=== PATIENT | female | born 1945 | race Caucasian/White ===

== ENCOUNTER → 2019-04-21 | Outpatient (CLI) | payer BC, MEDICARE ==
--- NOTE | 2019-04-21 19:02 | RADIOLOGY REPORT (SQ) ---
EXAM DESCRIPTION: KUB/ABDOMEN (SINGLE VIEW) COMPLETED DATE/TIME: 04/21/2019 6:51 pm REASON FOR STUDY: MRI SCREENING EVAL FOR FOREIGN BODY M54.5 LOW BACK PAIN COMPARISON: None. NUMBER OF VIEWS: One view. TECHNIQUE: Supine radiographic image of the abdomen acquired. LIMITATIONS: None. FINDINGS: BOWEL GAS PATTERN: Normal bowel gas pattern. No dilated loops. CALCIFICATIONS: No suspicious calcifications. SOFT TISSUES: No gross mass or suggestion of organomegaly. HARDWARE: Patient has an endoscopically placed clip over the right rectosigmoid region. Patient give s a history of a endoscopic polypectomy/clip placement recently. These endoscopically placed clips a re not MRI compatible. Recommend intermittent serial KUBs until the clip passes before further attem pts at MRI. BONES: No acute fracture. No worrisome bone lesions. OTHER: No other significant finding. IMPRESSION: Patient has an endoscopically placed clip over the right rectosigmoid region. Patient g carmelo a history of a endoscopic polypectomy/clip placement recently. These endoscopically placed clips are not MRI compatible. Recommend intermittent serial KUBs until the clip passes before further att empts at MRI. TECHNICAL DOCUMENTATION: JOB ID: [id number] [employer]- All Rights Reserved Reading location - IP/workstation name: [email or web address]
== END ==
LOC: RAD 19:01
PROVIDERS: ATTEND Physician Assistant
DX: Z13.89 Encounter for screening for other disorder (principal)
CPT/HCPCS: 74018

== ENCOUNTER → 2019-05-01 | Outpatient (CLI) | payer MEDICARE ==
--- NOTE | 2019-05-01 15:00 | RADIOLOGY REPORT (SQ) ---
EXAM DESCRIPTION: CT LUMBAR SPINE WITHOUT COMPLETED DATE/TIME: 05/01/2019 2:19 pm REASON FOR STUDY: M54.5 LOW BACK PAIN M54.5 LOW BACK PAIN COMPARISON: None. TECHNIQUE: Axial images acquired through the lumbar spine without intravenous contrast. Images revi ewed with lung, soft tissue and bone windows. Reconstructed coronal and sagittal MPR images reviewed . All images stored on PACS. All CT scanners at this facility use dose modulation, iterative reconstruction, and/or weight based d osing when appropriate to reduce radiation dose to as low as reasonably achievable (ALARA). [facility]: Dose Right [facility]: CareDose [facility]: Dose Right [facility]: Teradose 4D [facility]: ActiveTrak RADIATION DOSE: CT Rad equipment meets quality standard of care and radiation dose reduction techniq ues were employed. CTDIvol: 14.3 mGy. DLP: 568 mGy-cm. mGy. LIMITATIONS: None. FINDINGS: SEGMENTATION: Normal. No transitional anatomy. ALIGNMENT: Levoconvex lumbar curvature with straightening of the normal lumbar lordosis. Grade 1 ant erolisthesis of L4 on L5. VERTEBRAL BODIES: No fracture. Chronic Modic endplate changes within the lower thoracic vertebral prabhu dies and at L1-2 and L2-3. DISCS: Multilevel degenerative disc disease with disc height loss throughout the lumbar spine greates t at L1-2 and L2-3. Vacuum phenomenon at L2-3 and L4-5. Multilevel posterior disc bulges greatest a t L2-3 with resultant moderate canal stenosis and moderate to severe right neural foraminal narrowing at L1-2 and L2-3. Additional moderate posterior disc bulge at L4-5 with at least moderate canal anita nosis, evaluation limited without intrathecal contrast. There is resultant moderate neural foraminal narrowing on the left at that level. PEDICLES, TRANSVERSE PROCESSES: No fractures. No dislocation. No acute findings. FACETS, POSTERIOR ELEMENTS: Lower lumbar facet arthropathy greatest at L4-5 and L5-S1. HARDWARE: None in the spine. VISUALIZED RIBS: No fractures. SOFT TISSUES: Scattered colonic diverticula. Aortoiliac atherosclerosis. No evidence of acute proce ss on the limited evaluation. OTHER: No other significant finding. IMPRESSION: 1. No evidence of acute bony abnormality of the lumbar spine. 2. Multilevel degenerative disc disease greatest at L1-2 and L2-3. Multilevel posterior disc bulges with at least moderate canal stenosis at L2-3 and L4-5 although evaluation limited without intrathec al contrast. 3. Multilevel neural foraminal narrowing from disc disease and facet arthropathy greatest at L1-3 an d L4-5 as above. TECHNICAL DOCUMENTATION: JOB ID: [id number] Quality ID # 436: Final reports with documentation of one or more dose reduction techniques (e.g., Au tomated exposure control, adjustment of the mA and/or kV according to patient size, use of iterative reconstruction technique) 2010 [employer]- All Rights Reserved Reading location - IP/workstation name: [email or web address]
== END ==
LOC: RAD 14:05
PROVIDERS: ATTEND Physician Assistant
DX: M51.36 Other intervertebral disc degeneration, lumbar region (principal); M48.061 Spinal stenosis, lumbar region without neurogenic claudication; M54.5 Low back pain
CPT/HCPCS: 72131

== ENCOUNTER 2019-06-22 07:53 | Day surgery (SDC) | payer MEDICARE ==
[2019-06-22 10:50] LABS: INTERNATIONAL RATION (INR) 0.96; PARTIAL THROMBOPLASTIN TIME 27.8 SEC (23.5-35.8); PROTHROMBIN TIME 12.8 SEC (11.4-15.4)
[2019-06-22 14:20] VITALS: BP 108/54
--- NOTE | 2019-06-22 16:15 | RADIOLOGY REPORT (SQ) ---
EXAM DESCRIPTION: MYELOGRAM LUMBAR; CT LUMBAR SPINE WITH COMPLETED DATE/TIME: 06/22/2019 12:02 pm; 06/22/2019 11:54 am REASON FOR STUDY: SPINAL STENOSIS, LUMBAR REGION WITHOUT NEUROGENIC CLAUDICATION/ RADILOPATHY M48.06 1 M54.16 RADICULOPATHY, LUMBAR REGION Z79.01 PENITENTIARY (CURRENT) USE OF ANTICOAGULANTS COMPARISON: CT lumbar spine 05/01/2019 FLUOROSCOPY TIME: 1.5 minutes 17 images saved to PACS. TECHNIQUE: Fluoroscopic guided lumbar myelogram. Post lumbar myelogram CT with sagittal coronal reconstructions. LIMITATIONS: None. PROCEDURE: After written consent and assessment were obtained, the patient was brought into the fluo roscopy room and placed prone on the table. The patient's lower back was prepped in a sterile fashio n and an entry site was selected under live fluoroscopic guidance. The entry site was anesthetized wi th 1% lidocaine. The spinal needle was advanced through the skin and into the thecal sac at the left paracentral L1-2 level. Contrast was injected into the thecal sac. Following the procedure the need le was removed and a sterile bandage was placed of the site. CONTRAST: 14 mL Omnipaque 180. IMAGES ACQUIRED: Prone oblique, semi-erect and upright oblique, PA, and lateral images of the lumbar spine. Lumbar flexion extension images. TECHNIQUE: After performing lumbar myelogram, axial images were acquired through the lumbar spine wi thout intravenous contrast. Images reviewed with lung, soft tissue and bone windows. Reconstructed coronal and sagittal MPR images reviewed. All images stored on PACS. All CT scanners at this facility use dose modulation, iterative reconstruction, and/or weight based d osing when appropriate to reduce radiation dose to as low as reasonably achievable (ALARA). [facility]: Dose Right [facility]: CareDose [facility]: Dose Right [facility]: Teradose 4D [facility]: LEAFER FINDINGS: At myelography, there is significant central canal stenosis at L2-3, with effacement of th e CSF around the lumbar nerve roots, and high-grade central canal stenosis. This persists between pr one and upright views, unchanged between flexion and extension images. During injection, a partial m yelographic block at L2-3 was present. At myelography, moderate central canal stenosis at L4-5 is present with partial effacement of the CSF around the lumbar nerve roots. Postmyelogram CT: SEGMENTATION: Normal. No transitional anatomy. ALIGNMENT: Grade 1 anterolisthesis of L4 over L5. There is diffuse convex leftward lumbar curvature VERTEBRAL BODIES: No fractures. No dislocation. No acute findings. HARDWARE: None in the spine. DISCS: T10-11, T11-12, T12-L1: No central canal or foraminal stenosis. Conus at the T12-L1 level. L1-L2: There is L1-2 disc space loss of height and vertebral body endplate sclerosis. Mild diffuse p osterior disc bulging, mild facet and ligament hypertrophy is present. There is high-grade right for aminal narrowing with effacement of fat around the exiting right L1 nerve root on sagittal image 35 a nd axial image 43/125. Mild left foraminal narrowing is present without exiting left L1 nerve root i mpingement. L2-L3: High-grade central canal stenosis present at the L2-3 level on both upright flexion/ extension images and supine CT scanning. This results from broad diffuse posterior disc bulge and bony spurri ng right greater than left, and bilateral facet arthropathy. There is severe right foraminal narrowi ng with effacement of the fat around the exiting right L2 nerve root. Mild left foraminal narrowing without exit left L2 nerve root impingement. No instability on the upright flexion and extension pos tmyelogram images. L3-L4: Minimal posterior disc bulging, mild facet hypertrophy is present. No central canal narrowing . There is mild bilateral foraminal narrowing without exiting L3 nerve root impingement. L4-L5: Grade 1 anterolisthesis of L4 over L5, bulky bilateral facet and ligament hypertrophy is prese nt. Moderate central canal stenosis results from broad diffuse disc bulge and facet/ ligament hypert rophy. Partial effacement of the CSF around the lumbar nerve roots. Findings are stable between upr ight flexion/ extension images and supine CT images. Elsewhere at L4-5, there is moderate bilateral foraminal narrowing left greater than right. L5-S1: Minimal diffuse posterior disc bulging, moderate bilateral facet hypertrophy right greater andre n left. No central stenosis. Mild right and moderate left foraminal stenosis. VISUALIZED RIBS: No fractures. SOFT TISSUES: Sigmoid colon diverticuli. No retroperitoneal adenopathy or abdominal aortic aneurysm. OTHER: No other significant finding. IMPRESSION: High-grade central canal stenosis at L2-3 High-grade right foraminal narrowing L1-2 Moderate central canal stenosis at L4-5 COMMENT: Patient medication list reviewed: Yes- Quality ID# [id number]:Eligible professional attests to doc umenting in the medical record they obtained, updated, or reviewed the patient's current medications. TECHNICAL DOCUMENTATION: JOB ID: [id number] Quality ID # 436: Final reports with documentation of one or more dose reduction techniques (e.g., Au tomated exposure control, adjustment of the mA and/or kV according to patient size, use of iterative reconstruction technique) 2010 [employer]- All Rights Reserved Reading location - IP/workstation name: [email or web address]
== END 2019-06-22 14:15 | disposition home or self-care (01) ==
LOC: RAD 07:53
PROVIDERS: ATTEND Physician Assistant
DX: M48.061 Spinal stenosis, lumbar region without neurogenic claudication (principal); M54.16 Radiculopathy, lumbar region; M41.9 Scoliosis, unspecified; Z79.01 Long term (current) use of anticoagulants; C91.10 Chronic lymphocytic leukemia of B-cell type not having achieved remission; Z79.899 Other long term (current) drug therapy
CPT/HCPCS: 72132; 72265; 85610; 85730

== ENCOUNTER 2020-04-24 10:31 | Day surgery (SDC) | payer MEDICARE ==
[2020-04-24 11:53] LABS: PARTIAL THROMBOPLASTIN TIME 26.6 SEC (23.5-35.8); PROTHROMBIN TIME 13.4 SEC (11.4-15.4)
--- NOTE | 2020-04-24 13:31 | RADIOLOGY REPORT (SQ) ---
EXAM DESCRIPTION: CT LUMBAR SPINE WITH; MYELOGRAM LUMBAR IMAGES COMPLETED DATE/TIME: 04/24/2020 1:08 pm; 04/24/2020 1:07 pm REASON FOR STUDY: ARTHRODSIS,CT MYELOGRAM; S/P LUMBAR [id number]/ LUMBAR SPINE PAIN M54.5 Z98.1 A RTHRODESIS STATUS M54.5 LOW BACK PAIN Z79.01 CORRECTION (CURRENT) USE OF ANTICOAGULANTS COMPARISON: CT lumbar spine dated 06/22/2019 FLUOROSCOPY TIME: 1 minutes 13 images saved to PACS. TECHNIQUE: Fluoroscopic guided lumbar myelogram. LIMITATIONS: None. PROCEDURE: After written consent and assessment were obtained, the patient was brought into the fluo roscopy room and placed prone on the table. The patient's lower back was prepped in a sterile fashio n and an entry site was selected under live fluoroscopic guidance. The entry site was anesthetized wi th 1% lidocaine. The spinal needle was advanced through the skin and into the thecal sac at the level of L2. Contrast was injected into the thecal sac. Following the procedure the needle was removed a nd a sterile bandage was placed of the site. CONTRAST: 12 mL Omnipaque 180. IMAGES ACQUIRED: 13 TECHNIQUE: After performing lumbar myelogram, axial images were acquired through the lumbar spine wi thout intravenous contrast. Images reviewed with lung, soft tissue and bone windows. Reconstructed coronal and sagittal MPR images reviewed. All images stored on PACS. All CT scanners at this facility use dose modulation, iterative reconstruction, and/or weight based d osing when appropriate to reduce radiation dose to as low as reasonably achievable (ALARA). [facility]: Dose Right [facility]: CareDose [facility]: Dose Right [facility]: Teradose 4D [facility]: [employer] FINDINGS: SEGMENTATION: Normal. No transitional anatomy. ALIGNMENT: Scoliosis with concavity toward the right. Apexes at L1-L2. VERTEBRAL BODIES: No fractures. No dislocation. No acute findings. HARDWARE: Postsurgical changes at L4 and L5 with posterior fusion. DISCS: L1-L2: Disc space narrowing at L1-L2. Mild annular bulging. This results in mild central stenosis. There is bilateral foraminal narrowing due to hyperostosis right greater than left. L2-L3: Disc space narrowing and vacuum phenomena. Broad-based annular disc bulging with moderate radha tral stenosis. There is bilateral facet arthropathy. Mild asymmetric narrowing of the right neural foramina. L3-L4: Broad-based annular disc bulging. There is mild bilateral foraminal narrowing. No significan t central stenosis. L4-L5: Postsurgical changes. Prior posterior decompression. No high-grade central stenosis. There is bilateral foraminal narrowing. L5-S1: No significant protrusions. No significant stenosis. PEDICLES, TRANSVERSE PROCESSES: No fractures. No dislocation. No acute findings. FACETS, POSTERIOR ELEMENTS: No fractures. No dislocation. No spinal stenosis. VISUALIZED RIBS: No fractures. SOFT TISSUES: No significant or acute finding in adjacent soft tissues. OTHER: No other significant finding. IMPRESSION: 1. Lumbar scoliosis with concavity toward the right. 2. Postsurgical and degenerative changes throughout the lumbar spine. Prior posterior fusion at L4- L5. 3. Mild central stenosis at L1-L2 and bilateral foraminal narrowing. 4. Broad-based annular disc bulging at L2-L3 with moderate central stenosis there is asymmetric narr owing of the right neural foramina. 5. Mild bilateral foraminal narrowing at L3-L4 due to annular disc bulging. 6. Bilateral foraminal narrowing at L4-L5. No high-grade central stenosis. COMMENT: Patient medication list reviewed: Yes- Quality ID# [id number]:Eligible professional attests to doc umenting in the medical record they obtained, updated, or reviewed the patient's current medications. TECHNICAL DOCUMENTATION: JOB ID: [id number] Quality ID # 436: Final reports with documentation of one or more dose reduction techniques (e.g., Au tomated exposure control, adjustment of the mA and/or kV according to patient size, use of iterative reconstruction technique) 2010 [employer]- All Rights Reserved Reading location - IP/workstation name: [email or web address]
--- NOTE | 2020-04-24 13:31 | RADIOLOGY REPORT (SQ) ---
EXAM DESCRIPTION: CT LUMBAR SPINE WITH; MYELOGRAM LUMBAR IMAGES COMPLETED DATE/TIME: 04/24/2020 1:08 pm; 04/24/2020 1:07 pm REASON FOR STUDY: ARTHRODSIS,CT MYELOGRAM; S/P LUMBAR [id number]/ LUMBAR SPINE PAIN M54.5 Z98.1 A RTHRODESIS STATUS M54.5 LOW BACK PAIN Z79.01 HALFWAY (CURRENT) USE OF ANTICOAGULANTS COMPARISON: CT lumbar spine dated 06/22/2019 FLUOROSCOPY TIME: 1 minutes 13 images saved to PACS. TECHNIQUE: Fluoroscopic guided lumbar myelogram. LIMITATIONS: None. PROCEDURE: After written consent and assessment were obtained, the patient was brought into the fluo roscopy room and placed prone on the table. The patient's lower back was prepped in a sterile fashio n and an entry site was selected under live fluoroscopic guidance. The entry site was anesthetized wi th 1% lidocaine. The spinal needle was advanced through the skin and into the thecal sac at the level of L2. Contrast was injected into the thecal sac. Following the procedure the needle was removed a nd a sterile bandage was placed of the site. CONTRAST: 12 mL Omnipaque 180. IMAGES ACQUIRED: 13 TECHNIQUE: After performing lumbar myelogram, axial images were acquired through the lumbar spine wi thout intravenous contrast. Images reviewed with lung, soft tissue and bone windows. Reconstructed coronal and sagittal MPR images reviewed. All images stored on PACS. All CT scanners at this facility use dose modulation, iterative reconstruction, and/or weight based d osing when appropriate to reduce radiation dose to as low as reasonably achievable (ALARA). [facility]: Dose Right [facility]: CareDose [facility]: Dose Right [facility]: Teradose 4D [facility]: [employer] FINDINGS: SEGMENTATION: Normal. No transitional anatomy. ALIGNMENT: Scoliosis with concavity toward the right. Apexes at L1-L2. VERTEBRAL BODIES: No fractures. No dislocation. No acute findings. HARDWARE: Postsurgical changes at L4 and L5 with posterior fusion. DISCS: L1-L2: Disc space narrowing at L1-L2. Mild annular bulging. This results in mild central stenosis. There is bilateral foraminal narrowing due to hyperostosis right greater than left. L2-L3: Disc space narrowing and vacuum phenomena. Broad-based annular disc bulging with moderate radha tral stenosis. There is bilateral facet arthropathy. Mild asymmetric narrowing of the right neural foramina. L3-L4: Broad-based annular disc bulging. There is mild bilateral foraminal narrowing. No significan t central stenosis. L4-L5: Postsurgical changes. Prior posterior decompression. No high-grade central stenosis. There is bilateral foraminal narrowing. L5-S1: No significant protrusions. No significant stenosis. PEDICLES, TRANSVERSE PROCESSES: No fractures. No dislocation. No acute findings. FACETS, POSTERIOR ELEMENTS: No fractures. No dislocation. No spinal stenosis. VISUALIZED RIBS: No fractures. SOFT TISSUES: No significant or acute finding in adjacent soft tissues. OTHER: No other significant finding. IMPRESSION: 1. Lumbar scoliosis with concavity toward the right. 2. Postsurgical and degenerative changes throughout the lumbar spine. Prior posterior fusion at L4- L5. 3. Mild central stenosis at L1-L2 and bilateral foraminal narrowing. 4. Broad-based annular disc bulging at L2-L3 with moderate central stenosis there is asymmetric narr owing of the right neural foramina. 5. Mild bilateral foraminal narrowing at L3-L4 due to annular disc bulging. 6. Bilateral foraminal narrowing at L4-L5. No high-grade central stenosis. COMMENT: Patient medication list reviewed: Yes- Quality ID# [id number]:Eligible professional attests to doc umenting in the medical record they obtained, updated, or reviewed the patient's current medications. TECHNICAL DOCUMENTATION: JOB ID: [id number] Quality ID # 436: Final reports with documentation of one or more dose reduction techniques (e.g., Au tomated exposure control, adjustment of the mA and/or kV according to patient size, use of iterative reconstruction technique) 2010 [employer]- All Rights Reserved Reading location - IP/workstation name: [email or web address]
[2020-04-24 15:46] VITALS: BP 117/65
== END 2020-04-24 15:00 | disposition home or self-care (01) ==
LOC: RAD 10:31
PROVIDERS: ATTEND Physician Assistant
DX: M54.5 Low back pain (principal); Z98.1 Arthrodesis status; Z79.01 Long term (current) use of anticoagulants; I10 Essential (primary) hypertension; C91.10 Chronic lymphocytic leukemia of B-cell type not having achieved remission; Z79.899 Other long term (current) drug therapy
CPT/HCPCS: 36415; 72132; 72265; 85610; 85730